=== PATIENT | male | born 1980 | race Caucasian/White ===

== ENCOUNTER 2016-12-27 07:08 | Emergency (ER) | payer OTHER ==
[~2016-12-27] VITALS: Ht 175.3 cm; Wt 84.5 kg
[2016-12-27] MEDS ORDERED: methylPREDNISolone SOD SUCC 125 MG/2 ML ONE (08:23)
[2016-12-27] MEDS ORDERED: HYDROmorphone 1 MG/ML, 1ML ONE ×3 (08:23→11:54)
[2016-12-27] MEDS ORDERED: KETOROLAC 30 MG/1 ML ONE (08:23)
[2016-12-27] MEDS: HYDROmorphone 1 MG/ML, 1ML IVPush PRN ×2 (08:27→09:39)
[2016-12-27] MEDS ORDERED: KETOROLAC 30 MG/1 ML IVPush ONE (08:30)
[2016-12-27] MEDS ORDERED: METHOCARBAMOL 1,000 MG in DEXTROSE 5% 100 ML IV ONE (08:30)
[2016-12-27] MEDS ORDERED: methylPREDNISolone SOD SUCC 125 MG/2 ML IVPush ONE (08:30)
[2016-12-27] MEDS ORDERED: GADOBUTROL 10 MMOL/10 ML PFS ONE (10:44)
[2016-12-27] MEDS ORDERED: HYDROmorphone 1 MG/ML, 1ML IV ONE (12:00)
[2016-12-27 12:32] VITALS: BP 135/90
== END 2016-12-27 12:35 | disposition home or self-care (01) ==
LOC: ED 07:35
DX: M54.12 Radiculopathy, cervical region (principal)
CPT/HCPCS: 72156; 96365; 96375; 96376; 99284; A9585; J1170; J1885; J2800; J2930

== ENCOUNTER 2016-12-30 10:15 | Emergency (ER) | payer OTHER ==
[~2016-12-30] VITALS: Ht 175.3 cm; Wt 85.5 kg
[2016-12-30] MEDS ORDERED: HYDROmorphone 1 MG/ML, 1ML ONE (10:49)
[2016-12-30] MEDS ORDERED: DIAZEPAM 5 MG TABLET ONE (10:49)
[2016-12-30] MEDS ORDERED: KETOROLAC 30 MG/1 ML ONE (10:50)
[2016-12-30 10:59] VITALS: BP 124/64
[2016-12-30] MEDS ORDERED: SODIUM CHLORIDE 0.9% 1,000ML IV ONE (11:00)
[2016-12-30] MEDS ORDERED: HYDROmorphone 1 MG/ML, 1ML IVPush PRN (11:00)
[2016-12-30] MEDS ORDERED: GABAPENTIN 300 MG CAPSULE PO ONE (11:00)
[2016-12-30] MEDS ORDERED: DIAZEPAM 5 MG TABLET PO ONE (11:00)
[2016-12-30] MEDS ORDERED: KETOROLAC 30 MG/1 ML IVPush ONE (11:00)
[2016-12-30] MEDS ORDERED: SODIUM CHLORIDE FLUSH 10ML SYR IVF ONE (11:00)
== END 2016-12-30 12:40 | disposition home or self-care (01) ==
LOC: ED 11:11
DX: M54.12 Radiculopathy, cervical region (principal)
CPT/HCPCS: 96361; 96374; 96375; 99285; J1170; J1885; J7030; J7512

== ENCOUNTER 2017-01-04 10:29 | Emergency (ER) | payer OTHER ==
[~2017-01-04] VITALS: Ht 175.3 cm; Wt 87.5 kg
[2017-01-04 10:30] VITALS: BP 148/82
[2017-01-04] MEDS ORDERED: DIAZEPAM 5 MG/ML, 10ML VIAL IM ONE (11:00)
[2017-01-04] MEDS ORDERED: KETOROLAC 30 MG/1 ML IM ONE (11:00)
[2017-01-04] MEDS ORDERED: HYDROmorphone 1 MG/ML, 1ML IM ONE (11:00)
[2017-01-04] MEDS ORDERED: DIAZEPAM 5 MG TABLET ONE (11:07)
[2017-01-04] MEDS ORDERED: KETOROLAC 30 MG/1 ML ONE (11:07)
[2017-01-04] MEDS ORDERED: HYDROmorphone 1 MG/ML, 1ML ONE (11:07)
== END 2017-01-04 11:56 | disposition left against medical advice (07) ==
LOC: ED 11:31
DX: M54.2 Cervicalgia (principal)
CPT/HCPCS: 96372; 99284; J1170; J1885; J3360

== ENCOUNTER 2017-01-05 17:01 | Emergency (ER) | payer OTHER ==
[~2017-01-05] VITALS: Ht 175.3 cm; Wt 81.5 kg
[2017-01-05] MEDS ORDERED: HYDROmorphone 1 MG/ML, 1ML IM ONE (18:00)
[2017-01-05] MEDS ORDERED: DIAZEPAM 5 MG TABLET PO ONE (18:00)
[2017-01-05] MEDS ORDERED: DIAZEPAM 5 MG TABLET ONE (18:17)
[2017-01-05] MEDS ORDERED: HYDROmorphone 1 MG/ML, 1ML ONE (18:17)
[2017-01-05 18:59] VITALS: BP 158/95
== END 2017-01-05 19:01 | disposition home or self-care (01) ==
LOC: ED 17:46
DX: M54.12 Radiculopathy, cervical region (principal); G89.29 Other chronic pain; M54.2 Cervicalgia; F17.200 Nicotine dependence, unspecified, uncomplicated
CPT/HCPCS: 96372; 99283; J1170